=== PATIENT | female | born 1970 | race African-American/Black ===

== ENCOUNTER 2018-02-05 16:42 | Emergency (ER) | payer OTHER, MEDICAID ==
[~2018-02-05] VITALS: Ht 157.5 cm; Wt 104.5 kg
[~2018-02-05 16:42] MED LIST: COZA50TA PO; HYDR-2768 PO; IBUP800 PO; LEFL20 PO; PRED20 PO; PREV30CA36 PO; TRAM50 PO
[2018-02-05 16:50] VITALS: BP 161/93; PULSE 83; RESP 18; TEMP 99.4; O2SAT 100
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
[2018-02-05] MEDS ORDERED: LOSA50TA PO (19:18)
[2018-02-05] MEDS ORDERED: HYDR25TA5 PO (19:18)
[2018-02-05] MEDS ORDERED: AMLO5TAB2 PO (19:18)
[2018-02-05] MEDS ORDERED: EMBREL IJ (19:18)
[2018-02-05 19:28] VITALS: BP 168/86; PULSE 76; RESP 16; O2SAT 96
[2018-02-05 20:04] LABS: AUTOMATED NEUTROPHIL # 6.7 TH/MM3 (1.8-7.7); BASOPHIL % 0.4 % (0.0-2.0); EOSINOPHIL # 0.3 TH/MM3 (0-0.4); EOSINOPHIL % 2.5 % (0.0-4.0); HEMATOCRIT 39.6 % (35.0-46.0); HEMOGLOBIN 12.9 GM/DL (11.6-15.3); LYMPH % 20.9 % (9.0-44.0); LYMPHOCYTE # 2.1 TH/MM3 (1.0-4.8); MEAN CELL VOLUME 88.8 FL (80.0-100.0); MEAN CORPUSCULAR HEMOGLOBIN 28.9 PG (27.0-34.0); MEAN CORPUSCULAR HGB CONC 32.6 % (32.0-36.0); MEAN PLATELET VOLUME 9.6 FL (7.0-11.0); MONO % 9.8 % (0.0-8.0); NEUT % 66.4 % (16.0-70.0); PLATELET COUNT 226 TH/MM3 (150-450); RED BLOOD COUNT 4.46 MIL/MM3 (4.00-5.30); RED CELL DISTRIBUTION WIDTH 13.2 % (11.6-17.2)
--- NOTE | 2018-02-05 20:26 | RADRPT ---
EXAM DATE/TIME: 02/05/2018 19:41 [facility] COMPARISON: CHEST SINGLE AP, November 04, 2014, 21:08. INDICATIONS : Shortness of breath MEDICAL HISTORY : None. SURGICAL HISTORY : None. ENCOUNTER: Initial ACUITY: 1 day PAIN SCORE: 0/10 LOCATION: Bilateral chest FINDINGS: A single view of the chest demonstrates the lungs to be symmetrically aerated without evidence of mas s, infiltrate or effusion. The cardiomediastinal contours are unremarkable. Osseous structures are intact. CONCLUSION: No acute disease. Oneil Vences MD on February 05, 2018 at 20:24 Board Certified Radiologist. This report was verified electronically.
[2018-02-05 20:30] LABS: BICARBONATE 28.8 MEQ/L (21.0-32.0); CALCIUM 8.8 MG/DL (8.5-10.1); CREATININE 1.15 MG/DL (0.50-1.00)
[2018-02-05 20:31] LABS: D-DIMER 1.44 MG/L FEU (0.00-0.50)
--- NOTE | 2018-02-05 20:59 | RADRPT ---
EXAM DATE/TIME: 02/05/2018 20:15 [facility] COMPARISON: No previous studies available for comparison. INDICATIONS : Left leg swelling. MEDICAL HISTORY : Hypertension. Gastroesophageal reflux disease. Rheumatoid arthritis. Glasses. Dizziness. Pulmonary embolisim. Anemia. SURGICAL HISTORY : Tubal ligation. Bilateral femur surgery. Bilateral leg surgery. Left knee surgery. Right foot surg giovanna. ENCOUNTER: Initial ACUITY: 1 week PAIN SCORE: 3/10 LOCATION: Left leg. TECHNIQUE: Venous ultrasound of the leg was performed from the inguinal ligament to the proximal calf. Real-dusty e, color Doppler and spectral tracing, compression and augmentation techniques were used. FINDINGS: There is normal compressibility of the deep venous system from the inguinal region to the proximal ca lf. No echogenic clot is seen in the lumen of the common femoral, femoral, popliteal, and posterior tibial veins. There is a normal response of the venous system to proximal and distal augmentation an d respiration. CONCLUSION: Normal examination. Oneil Garnett MD on February 05, 2018 at 20:56 Board Certified Radiologist. This report was verified electronically.
[2018-02-05] MEDS ORDERED: MOBI15TA PO (21:04)
[2018-02-05] MEDS ORDERED: ZITHTAB PO (21:04)
[2018-02-05] MEDS ORDERED: ROBA750T PO (21:04)
[2018-02-06] MEDS ORDERED: ETAN50CA IM (11:15)
== END 2018-02-05 21:24 | disposition home or self-care (01) ==
LOC: NEPC 16:42
DX: S86.912A Strain of unspecified muscle(s) and tendon(s) at lower leg level, left leg, initial encounter (principal); J40 Bronchitis, not specified as acute or chronic; I10 Essential (primary) hypertension; M06.9 Rheumatoid arthritis, unspecified; X58.XXXA Exposure to other specified factors, initial encounter
CPT/HCPCS: 71045; 80048; 85025; 85379; 85610; 85730; 93971